=== PATIENT | male | born 1980 | race Caucasian/White ===

== ENCOUNTER 2017-03-05 01:35 | Emergency (ER) | payer BC, OTHER ==
[~2017-03-05 01:35] MED LIST: NO ROUTINE MEDS
[2017-03-05] MEDS ORDERED: PRED20TA6 PO (01:40)
--- NOTE | 2017-03-05 01:42 | ER Report ---
History and Physical Time Seen By MD: 01:39 HPI/ROS CHIEF COMPLAINT: Lip laceration HISTORY OF PRESENT ILLNESS: 36-year-old male presents ambulatory to the ER with a left lower lip laceration. Patient states he was working on a vacuum pump sealed blue and a plastic piece flew and struck him in the face. Patient notes his last tetanus shots up-to-date from one year ago. Patient notes a small injury to the inside of his lower lip. Patient denies LOC, nausea, vomiting, headache, visual changes or neck pain. REVIEW OF SYSTEMS: Respiratory: No cough, no dyspnea. Cardiovascular: No chest pain, no palpitations. Gastrointestinal: No vomiting, no abdominal pain. Musculoskeletal: No back pain. Allergies: Uncoded Allergies: ENVIRONMENTAL ALLERGIES (Allergy, Mild, EYES IRRITATED, 03/06/09) Home Meds Reported Medications Prednisone (PREDNISONE) 20 Mg Tablet, 10 MG PO PRN, TAB 03/05/17 Discontinued Reported Medications [No Routine Meds] No Conflict Check, 0 Refills 03/06/09 Reviewed Nurses Notes: Yes Old Medical Records Reviewed: Yes Constitutional Vital Sign - Last 24 Hours 03/05/17 03/05/17 01:40 02:19 Temp 98.2 Pulse 78 85 Resp 18 16 B/P (MAP) 137/85 138/82 (100) Pulse Ox 92 95 O2 Delivery Room Air Room Air Physical Exam General Appearance: The patient is alert, has no immediate need for airway protection and no current signs of toxicity. Palpation of the head and neck reveal no tenderness or trauma HEENT: Pupils equal and round no injection. TMs normal, patient notes normal bite. There is no dental trauma. There is some bruising to the left lower gumline. The internal surface of the left lower lip shows a deep abrasion about 4 mm in length requiring no suturing. On the external surface. There is approximately 1 cm vertical laceration that extends through the vermilion border. Respiratory: Chest is non tender, lungs are clear to auscultation. No chest wall tenderness Cardiac: regular rate and rhythm Musculoskeletal: Neck: Neck is supple and non tender. Extremities have full range of motion and are non tender. Skin: No rashes or lesions. DIFFERENTIAL DIAGNOSIS: After history and physical exam differential diagnosis was considered for head injury, neck strain, dental trauma, lip laceration, facial contusion Medical Decision Making ED Course/Re-evaluation ED Course Procedure: Laceration repair. Verbal consent was obtained from the patient. The 1.0 cm laceration on the left lower lip was anesthetized in the usual fashion. The wound was scrubbed, draped and explored to its base with a gloved finger. The wound was repaired with 6-0 Prolene 2 sutures. The wound repair was simple. The procedure was performed by myself. Wound care was discussed, suture removal will be in 5 days. Patient advised ibuprofen for pain relief Decision to Disposition Date: Mar 05, 2017 Decision to Disposition Time: 02:09 Depart Departure Latest Vital Signs Vital Signs Date Time Temp Pulse Resp B/P (MAP) Pulse Ox O2 Delivery O2 Flow Rate FiO2 03/05/17 02:19 85 16 138/82 (100) 95 Room Air 03/05/17 01:40 98.2 Impression: Primary Impression: Lip laceration Condition: Improved Disposition: HOME OR SELF-CARE Referrals: SUSI PACHECO MD (PCP) Patient Instructions: Facial Laceration (ED) Additional Instructions: Perform daily wound care, cover and antibiotic ointment Return to have sutures removed in 5 days Problem Qualifiers Primary Impression: Lip laceration Encounter type: initial encounter Qualified Codes: S01.511A - Laceration without foreign body of lip, initial encounter PÉREZ CRUZ DO Mar 05, 2017 01:42
[2017-03-05 02:19] VITALS: BP 138/82
== END 2017-03-05 02:26 | disposition home or self-care (01) ==
LOC: ER 01:50
DX: S01.511A Laceration without foreign body of lip, initial encounter (principal)
CPT/HCPCS: 99284

== ENCOUNTER 2018-02-14 18:12 | Emergency (ER) | payer OTHER, BC ==
[~2018-02-14 18:12] MED LIST changes: +PRED20TA6 PO
--- NOTE | 2018-02-14 18:22 | ER Report ---
History and Physical Time Seen By MD: 18:20 Hx. of Stated Complaint: PT REPORTS PAIN ON INSPIRATION MID STERNAL CHEST. SOB. BEGAN TUESDAY AND WORSENING. INJURY TO UPPER LEFT INJURY 2 WEEKS AGO. HPI/ROS CHIEF COMPLAINT: Chest pain HISTORY OF PRESENT ILLNESS: This is a 37-year-old male who presents to the emergency department for chest pain. 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 Since then he's had intermittent discomfort, progressively getting worse over the last several days, now he feels that he's got increased shortness of breath difficult to take deep breaths, the pain is on the left chest around the sternum then radiates down into the epigastrium. No d iaphoresis. No rashes. Intermittent nausea no vomiting. He thought this could be acid reflux and he's been taking large quantities of [id number] remedies with no relief. REVIEW OF SYSTEMS: Constitutional: As above. Eyes: No discharge. ENT: No sore throat. Cardiovascular: As above. Respiratory: As above. Gastrointestinal: No abdominal pain, no vomiting. Genitourinary: No hematuria. Musculoskeletal: As above. Skin: No rashes. Neurological: No headache. Allergies: Uncoded Allergies: ENVIRONMENTAL ALLERGIES (Allergy, Mild, EYES IRRITATED, 03/06/09) Home Meds Active Scripts Hydrocodone Bit/Acetaminophen (HYDROCODON-ACETAMINOPHEN 5-325) 1 Each Tablet, 1 EACH PO Q4-6H PRN for PAIN, #12 TAB Prov:TIMOTHY GALINDO DOUBLE END [employer]ONER SETTER-BC 02/14/18 Reported Medications Folic Acid (FOLIC ACID) 0.4 Mg Tablet, 0.4 MG PO 02/14/18 Methotrexate Sodium (METHOTREXATE) 2.5 Mg Tablet, 2.5 MG PO Q12H 02/14/18 Discontinued Reported Medications Prednisone (PREDNISONE) 20 Mg Tablet, 10 MG PO PRN, TAB 03/05/17 Past Medical/Surgical History The patient has a past medical and surgical history of chest wall injury while working, rheumatoid arthritis, right corneal replacement. Reviewed Nurses Notes: Yes Constitutional Vital Sign - Last 24 Hours 12/25/18 02/14/18 02/14/18 02/14/18 18:15 18:27 18:42 18:56 Temp 98.9 Pulse 120 105 96 Resp 20 25 15 B/P (MAP) 130/93 110/81 (91) Pulse Ox 90 90 94 O2 Delivery Room Air 02/14/18 02/14/18 02/14/18 02/14/18 18:57 19:00 19:12 19:27 Pulse 99 84 87 Resp 19 18 16 B/P (MAP) 120/80 (93) Pulse Ox 97 96 96 02/14/18 02/14/18 02/14/18 02/14/18 19:30 19:35 19:50 20:00 Pulse 80 79 Resp 25 24 B/P (MAP) 122/86 (98) 118/86 (97) Pulse Ox 97 90 02/14/18 02/14/18 02/14/18 02/14/18 20:05 20:10 20:25 20:30 Pulse 93 77 85 Resp 30 33 28 B/P (MAP) 127/102 (110) Pulse Ox 99 98 98 02/14/18 20:40 Pulse 78 Resp 25 Pulse Ox 96 Physical Exam General Appearance: The patient is alert, has no immediate need for airway protection and no signs of toxicity. Eyes: Pupils equal and round no pallor or injection. ENT, Mouth: Mucous membranes are moist. Respiratory: There are no retractions, lungs are clear to auscultation. Cardiovascular: Regular rate and rhythm, no murmurs, clicks or rubs. Gastrointestinal: Abdomen is soft however the left upper abdomen is more firm than the right, mild discomfort to the epigastrium with palpation, hypoactive bowel sounds, no masses, no abdominal bruits. Neurological: Alert and oriented 4. Moving all studies. Following all commands. No focal neuro deficits. Skin: Warm and dry, no rashes. Musculoskeletal: Neck is supple non tender. Left anterior chest pain along the sternal border down into the epigastrium with palpation, no crepitus or signs of a flail chest. Extremities are nontender, nonswollen and have full range of motion. DIFFERENTIAL DIAGNOSIS: After history and physical exam differential diagnosis was considered for chest pain including but not limited to myocardial ischemia, pericarditis pulmonary embolus, chest wall pain, pleural inflammation and pulmonary infectious causes. Medical Decision Making Data Points Result Diagram: 02/14/188 02/14/18 1818 Laboratory Hematology Test 02/14/18 18:18 Red Blood Count 6.05 M/uL (4.00-5.60) Mean Corpuscular Volume 84.4 fL (80.0-96.0) Mean Corpuscular Hemoglobin 28.3 pg (26.0-33.0) Mean Corpuscular Hemoglobin Concent 33.5 g/dL (32.0-36.0) Red Cell Distribution Width 13.7 % (11.5-14.5) Mean Platelet Volume 8.1 fL (7.2-11.1) Neutrophils (%) (Auto) 72.7 % (39.4-72.5) Lymphocytes (%) (Auto) 15.5 % (17.6-49.6) Monocytes (%) (Auto) 11.6 % (4.1-12.4) Eosinophils (%) (Auto) 0.0 % (0.4-6.7) Basophils (%) (Auto) 0.2 % (0.3-1.4) Nucleated RBC Relative Count (auto) 0.0 /100WBC Neutrophils # (Auto) 9.0 K/uL (2.0-7.4) Lymphocytes # (Auto) 1.9 K/uL (1.3-3.6) Monocytes # (Auto) 1.4 K/uL (0.3-1.0) Eosinophils # (Auto) 0.0 K/uL (0.0-0.5) Basophils # (Auto) 0.0 K/uL (0.0-0.1) Nucleated RBC Absolute Count (auto) 0.00 K/uL D-Dimer Quantitative (PE/DVT) 2.09 ug/ml (0-0.50) Sodium Level 138 mmol/L (137-145) Potassium Level 4.0 mmol/L (3.5-5.0) Chloride Level 97 mmol/L (98-107) Carbon Dioxide Level 31 mmol/L (22-30) Blood Urea Nitrogen 20 mg/dl (9-21) Creatinine 1.10 mg/dl (0.66-1.25) Glomerular Filtration Rate Calc > 60.0 Random Glucose 128 mg/dl (75-110) Calcium Level 9.5 mg/dl (8.4-10.2) Total Bilirubin 0.8 mg/dl (0.2-1.3) Aspartate Amino Transf (AST/SGOT) 38 U/L (0-35) Alanine Aminotransferase (ALT/SGPT) 33 U/L (0-56) Alkaline Phosphatase 95 U/L (0-126) Troponin I < 0.012 ng/ml Total Protein 8.3 g/dl (6.3-8.2) Albumin 4.2 g/dl (3.5-5.0) Chemistry Test 02/14/18 18:18 White Blood Count 12.3 k/uL (4.5-11.0) Red Blood Count 6.05 M/uL (4.00-5.60) Hemoglobin 17.1 g/dL (14.0-18.0) Hematocrit 51.0 % (42.0-52.0) Mean Corpuscular Volume 84.4 fL (80.0-96.0) Mean Corpuscular Hemoglobin 28.3 pg (26.0-33.0) Mean Corpuscular Hemoglobin Concent 33.5 g/dL (32.0-36.0) Red Cell Distribution Width 13.7 % (11.5-14.5) Platelet Count 287 K/uL (150-450) Mean Platelet Volume 8.1 fL (7.2-11.1) Neutrophils (%) (Auto) 72.7 % (39.4-72.5) Lymphocytes (%) (Auto) 15.5 % (17.6-49.6) Monocytes (%) (Auto) 11.6 % (4.1-12.4) Eosinophils (%) (Auto) 0.0 % (0.4-6.7) Basophils (%) (Auto) 0.2 % (0.3-1.4) Nucleated RBC Relative Count (auto) 0.0 /100WBC Neutrophils # (Auto) 9.0 K/uL (2.0-7.4) Lymphocytes # (Auto) 1.9 K/uL (1.3-3.6) Monocytes # (Auto) 1.4 K/uL (0.3-1.0) Eosinophils # (Auto) 0.0 K/uL (0.0-0.5) Basophils # (Auto) 0.0 K/uL (0.0-0.1) Nucleated RBC Absolute Count (auto) 0.00 K/uL D-Dimer Quantitative (PE/DVT) 2.09 ug/ml (0-0.50) Glomerular Filtration Rate Calc > 60.0 Calcium Level 9.5 mg/dl (8.4-10.2) Total Bilirubin 0.8 mg/dl (0.2-1.3) Aspartate Amino Transf (AST/SGOT) 38 U/L (0-35) Alanine Aminotransferase (ALT/SGPT) 33 U/L (0-56) Alkaline Phosphatase 95 U/L (0-126) Troponin I < 0.012 ng/ml Total Protein 8.3 g/dl (6.3-8.2) Albumin 4.2 g/dl (3.5-5.0) Coagulation Test 02/14/18 18:18 D-Dimer Quantitative (PE/DVT) 2.09 ug/ml EKG/Imaging EKG Interpretation 12 lead EKG: Time of EKG 1827. Rhythm: Sinus tachycardia, ventricular rate 102 bpm. [place]: normal QRS: normal ST segments: No ST depression or elevation identified. Poor T-wave progression. No previous EKGs for comparison. Imaging Location: [facility] Patient: Ethan Mejia : 1980 Visit/Account:[id number] Date of Sevice: 02/14/2018 CT ANGIOGRAM OF THE CHEST WITH INTRAVENOUS CONTRAST, PE PROTOCOL DATE OF EXAM: 02/14/2018 18:47 COMPARISON: Chest radiographs of the same day. INDICATION: sob and elevated ddimer. TECHNIQUE: Contrast enhanced chest CT performed during the injection of 75 ml of Isovue-370. Three-dimensional (MIP) reconstructions were performed. FINDINGS: Negative for pulmonary arterial embolus. Thyroid: Incompletely imaged thyroid. There is a tiny cyst in the right lobe. Thoracic inlet: No adenopathy. Heart and great vessels: Heart size is normal. Mediastinum and jf: No adenopathy. Lungs and pleura: Small left pleural effusion. Breast and axilla: Unremarkable. Bones and soft tissues: No acute osseous abnormality. Upper abdomen: Unremarkable. IMPRESSION: 1. Negative for pulmonary arterial embolus. 2. Small left pleural effusion. One of the following dose optimization techniques was utilized in the performance of this exam: Automated exposure control; adjustment of the mA and/or kV according to the patient's size; or use of an iterative reconstruction technique. Specific details can be referenced in the facility's radiology CT exam operational policy. Report Dictated By: Smith Gordon MD at 02/14/2018 7:46 PM Report E-Signed By: Smith Gordon MD at 02/14/2018 7:53 PM [id number] ED Course/Re-evaluation Clinical Indication for ER IV: Hydration, IV Access ED Course The patient was admitted to room. A history and physical were pain. Differential diagnoses were considered. An IV was started. A CBC, CMP, troponin and d-dimer were obtained. EKG showing normal sinus rhythm. A 1 L normal saline bolus was given. CBC showing WBCs 12.3, RBC 6.05. Mild left shift, the chemistry showing creatinine 1.10, negative troponin, positive d-dimer of 2.09. This could be secondary to his rheumatoid arthritis, the elevated white blood cell count could be demargination secondary to his chronic steroid use. Given the patient's symptoms and the elevated d-dimer, I did recommend a CTA of the chest to evaluate for a pulmonary embolus. Patient was agreeable. A CTA was negative for pulmonary embolus however there was a left-sided pleural effusion. The effusion could be secondary to the anterior chest pain that the patient sustained while training at work a couple of weeks ago, he's had pretty consistent pain since then however over the last several days it seems as though it's increased in intensity. I did send the patient home with an incentive spirometer, he is instructed to use the spirometer every 1-2 hours while awake, splint the anterior chest when using the spirometer and/or sneezing or coughing. I also recommended that he follows up with his metal painter before his March 06 follow-up date, the patient will call his metal painter tomorrow for reevaluation. Patient is already on steroids, I did recommend taking Tylenol as needed for pain, I did send him home with some hydrocodone to help with some his discomfort, he was also given a prescription for hydrocodone. The patient had no other questions or concerns at this time and was discharged home. Decision to Disposition Date: Feb 14, 2018 Decision to Disposition Time: 20:45 Depart Departure Latest Vital Signs Vital Signs Date Time Temp Pulse Resp B/P (MAP) Pulse Ox O2 Delivery O2 Flow Rate FiO2 02/14/18 20:40 78 25 96 02/14/18 20:30 127/102 (110) 02/14/18 18:15 98.9 Room Air Impression: Primary Impression: Pleural effusion Condition: Improved Disposition: HOME OR SELF-CARE New Scripts Hydrocodone Bit/Acetaminophen (HYDROCODON-ACETAMINOPHEN 5-325) 1 Each Tablet 1 EACH PO Q4-6H PRN for PAIN, #12 TAB Prov: TIMOTHY GALINDO 02/14/18 Patient Instructions: Pleural Effusion (ED) Additional Instructions: There was no sign of a pulmonary embolus in the lung. you do have a pleural effusion, I suspect he will also have a rib bruise that has continued to cause some pain and discomfort, the effusion may be a result of not taking deep breaths secondary to the pain from the ribs. Take the hydrocodone and Zofran as directed. Use the incentive spirometer every one to 2 hours, while using the incentive spirometer for a few or coughing use a pillow or a blanket to splint the chest this will help with some of the pain. I would also recommend calling your metal painter tomorrow to schedule a follow-up appointment sooner for reevaluation of the pain have been experiencing as well as the effusion. Be sure to drink plenty of water. Plenty of rest. Return to the ER for any other concerns or worsening symptoms. TIMOTHY GALINDO-BC Feb 14, 2018 18:22
[2018-02-14] MEDS ORDERED: NS(*) 0.9% 1000 ML BAG 1,000 ML IV ONE (18:28)
[2018-02-14] MEDS ORDERED: ONDANSETRON 4 MG/2 ML VIAL IVP ONE (18:30)
--- NOTE | 2018-02-14 18:32 | EKG ---
FACILITY: [facility] PATIENT NAME: ROSANNE GAN : [id number] MR: [id number] V: [id number] EXAM DATE: ORDERING PHYSICIAN: TIMOTHY GALINDO TECHNOLOGIST: Test Reason : chest pain Blood Pressure : / mmHG Vent. Rate : 102 BPM Atrial Rate : 102 BPM P-R Int : 122 ms QRS Dur : 074 ms QT Int : 316 ms P-R-T Axes : 025 053 029 degrees QTc Int : 411 ms Sinus tachycardia Otherwise normal ECG No previous ECGs available Confirmed by ATY BETTENCOURT ([id number]) on 02/14/2018 7:18:19 PM Referred By: Confirmed By:TAY BETTENCOURT
[2018-02-14 18:36] LABS: PLATELET COUNT, AUTOMATED 287 K/uL (150-450)
[2018-02-14] MEDS ORDERED: MORPHINE 4 MG/ML SDV IVP ONE (18:45)
[2018-02-14] MEDS ORDERED: METH2.5T43 PO (18:59)
[2018-02-14] MEDS ORDERED: FOLI0.4T56 PO (18:59)
[2018-02-14] MEDS ORDERED: IOPAMIDOL 76% 50 ML INFUS BTL 100 ML ONE (19:17)
[2018-02-14] MEDS ORDERED: NS(*) 0.9% 50 ML BAG 50 ML ONE (19:17)
--- NOTE | 2018-02-14 19:56 | RADIOLOGY IMAGING REPORT ---
FACILITY: [facility] PATIENT NAME: Ethan Mejia : 1980 MR: [id number] V: [id number] EXAM DATE: [id number] ORDERING PHYSICIAN: TIMOTHY GALINDO TECHNOLOGIST: Location: [facility] [place] Patient: Ethan Mejia : 1980 Visit/Account:[id number] Date of Sevice: 02/14/2018 CT ANGIOGRAM OF THE CHEST WITH INTRAVENOUS CONTRAST, PE PROTOCOL DATE OF EXAM: 02/14/2018 18:47 COMPARISON: Chest radiographs of the same day. INDICATION: sob and elevated ddimer. TECHNIQUE: Contrast enhanced chest CT performed during the injection of 75 ml of Isovue-370. Three-d imensional (MIP) reconstructions were performed. FINDINGS: Negative for pulmonary arterial embolus. Thyroid: Incompletely imaged thyroid. There is a tiny cyst in the right lobe. Thoracic inlet: No adenopathy. Heart and great vessels: Heart size is normal. Mediastinum and jf: No adenopathy. Lungs and pleura: Small left pleural effusion. Breast and axilla: Unremarkable. Bones and soft tissues: No acute osseous abnormality. Upper abdomen: Unremarkable. IMPRESSION: 1. Negative for pulmonary arterial embolus. 2. Small left pleural effusion. One of the following dose optimization techniques was utilized in the performance of this exam: Autom ated exposure control; adjustment of the mA and/or kV according to the patient's size; or use of an i terative reconstruction technique. Specific details can be referenced in the facility's radiology C T exam operational policy. Report Dictated By: Smith Gordon MD at 02/14/2018 7:46 PM Report E-Signed By: Smith Gordon MD at 02/14/2018 7:53 PM [id number]
[2018-02-14 20:30] VITALS: BP 127/102
[2018-02-14] MEDS ORDERED: HYDR-385 PO (20:45)
[2018-02-14] MEDS ORDERED: ACET/HYDROC 5/325MG TH ER ONLY 2 TAB/BOTTLE PO ONE (20:45)
[2018-02-14] MEDS ORDERED: ONDANSETRON 4 MG ODT TH SL ONE (20:45)
== END 2018-02-14 21:08 | disposition home or self-care (01) ==
LOC: ER 18:45
DX: J90 Pleural effusion, not elsewhere classified (principal)
CPT/HCPCS: 71275; 84484; 85025; 85379; 93005; 96361; 96374; 96375; 99284; J2270; J2405; J7030; J7050; Q9967; S0119; 82040; 82247; 82310; 82374; 82435; 82565; 82947; 84075; 84132; 84155; 84295; 84450; 84460; 84520